=== PATIENT | male | born 1955 | race African-American/Black ===

== ENCOUNTER 2018-07-28 14:10 | Emergency (ER) | payer OTHER ==
--- NOTE | 2018-07-28 14:29 | PDOC ---
Rapid Medical Evaluation Time Seen by Provider: 07/28/18 14:27 Medical Evaluation: 07/28/18 14:28 I have performed a brief in-person evaluation of this patient. The patient presents with a chief complaint of:worsening L hip/ankle pain after mechanical fall 5 days ago, able to ambulate Pertinent physical exam findings:deferred to FT team I have ordered the following:XR hip/ankle The patient will proceed to the ED for further evaluation. 07/28/18 14:34 Discharge Disposition - Diagnosis Injury of hip, left Qualifiers: Encounter type: initial encounter Qualified Code(s): S79.912A - Unspecified injury of left hip, initial encounter - Referrals - Patient Instructions - Post Discharge Activity
[2018-07-28 14:31] VITALS: BP 149/83; PULSE 81; TEMP 98.3; BMI 29.8
--- NOTE | 2018-07-28 15:52 | PDOC ---
History of Present Illness - General Chief Complaint: Injury Stated Complaint: INJURY Time Seen by Provider: 07/28/18 14:27 History Source: Patient Exam Limitations: No Limitations - History of Present Illness Initial Comments: 07/28/18 15:43 Patient states slipped and fell 5 days ago any on his left side striking his left hip and twisting his left ankle. Has been taking ibuprofen but has persistent pain. Came for evaluation and x-rays. Occurred: reports: other (5 days) Severity: reports: mild, moderate Pain Location: reports: lower extremity (left ankle, left hip) Method of Injury: Yes: fall Modifying Factors: improves with: cold therapy Loss of Consciousness: no loss of consciousness Associated Symptoms (Fall): denies symptoms Past History - Travel Traveled outside of the country in the last 30 days: No Close contact w/someone who was outside of country & ill: No - Past Medical History Allergies/Adverse Reactions: Allergies Allergy/AdvReac Type Severity Reaction Status Date / Time No Known Allergies Allergy Verified 07/28/18 14:28 Home Medications: Ambulatory Orders NK [No Known Home Medication] 07/28/18 COPD: No - Suicide/Smoking/Psychosocial Hx Smoking History: Never smoked Review of Systems - Review of Systems Able to Perform ROS?: Yes Is the patient limited Portuguese proficient: Yes Constitutional: Yes: Symptoms Reported, See HPI, Malaise Respiratory: Yes: See HPI Musculoskeletal: Yes: Symptoms Reported, See HPI, Joint Pain (left hip and left ankle), Joint Swelling All Other Systems: Reviewed and Negative *Physical Exam - Vital Signs Last Vital Signs Temp Pulse Resp BP Pulse Ox 98.3 F 81 16 149/83 98 07/28/18 14:29 07/28/18 14:29 07/28/18 14:29 07/28/18 14:29 07/28/18 14:29 - Physical Exam General Appearance: Yes: Nourished, Appropriately Dressed, Apparent Distress, Mild Distress HEENT: positive: [place], Normal ENT Inspection, TMs Normal, Pharynx Normal Neck: positive: Supple. negative: Tender Respiratory/Chest: positive: Lungs Clear. negative: Chest Tender Gastrointestinal/Abdominal: positive: Soft. negative: Tender Musculoskeletal: positive: Normal Inspection Extremity: positive: Normal Capillary Refill, Normal Range of Motion (swelling without point tenderness to lateral or medial malleolus, some mild midfoot tenderness without navicular or fifth metatarsal tenderness. Negative squeeze test. Is ambulatory but walks with mild limp.). 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, Fully Oriented, Alert, Normal Mood/ Affect, Normal Response, Motor Strength 5/5 Moderate Sedation - Procedure Monitoring Vital Signs: Procedure Monitoring Vital Signs Temperature 98.3 F 07/28/18 14:29 Pulse Rate 81 07/28/18 14:29 Respiratory Rate 16 07/28/18 14:29 Blood Pressure 149/83 07/28/18 14:29 O2 Sat by Pulse Oximetry (%) 98 07/28/18 14:29 Progress Note - Progress Note Progress Note: X-rays negative for fractures or dislocation however has significant osteoarthritis in all views of ankle, foot, and hips we'll recommend Tylenol or ibuprofen for pain relief, given phone number for orthopedist to follow-up and Roberto wrap to help support left ankle. *DC/Admit/Observation/Transfer Diagnosis at time of Disposition: Injury of hip, left Qualifiers: Encounter type: initial encounter Qualified Code(s): S79.912A - Unspecified injury of left hip, initial encounter Left ankle sprain Qualifiers: Encounter type: initial encounter Involved ligament of ankle: unspecified ligament Qualified Code(s): S93.402A - Sprain of unspecified ligament of left ankle, initial encounter - Discharge Dispostion Disposition: HOME Condition at time of disposition: Stable Decision to Admit order: No - Referrals Referrals: Joseph Shiplye MD [Staff Physician] - - Patient Instructions Printed Discharge Instructions: DI for Ankle Sprain Additional Instructions: Rest, ice to area on and off for 15 minutes 4-6 times a day Avoid heavy lifting or exercise until pain and swelling is resolved or until further directed Keep area highly elevated to reduce swelling Use splints/Roberto wrap as directed Followup with orthopedist in one to 2 days if not improving, if significantly improved may wait one week for followup with orthopedist May use ibuprofen 2-200 mg tablets every 6 hours as needed for pain - Post Discharge Activity Forms/Work/School Notes: Back to Work
== END 2018-07-28 16:06 | disposition home or self-care (01) ==
LOC: JERFT 14:10
PROC: 2W3RX1Z Immobilization of Left Lower Leg using Splint (ICD-10-PCS; principal; 2018-07-28)
DX: S79.912A Unspecified injury of left hip, initial encounter (principal); S93.402A Sprain of unspecified ligament of left ankle, initial encounter; X58.XXXA Exposure to other specified factors, initial encounter; Y93.89 Activity, other specified; Y92.9 Unspecified place or not applicable
CPT/HCPCS: 73523-TC-FY; 73610-TC-LT-FY; 73630-TC-LT; 99281-25